=== PATIENT | female | born 1930 | race Caucasian/White ===

== ENCOUNTER 2019-05-20 12:58 | Day surgery (SDC) | payer MEDICARE ==
[~2019-05-20] VITALS: Ht 149.9 cm; Wt 46.4 kg
[~2019-05-20 12:58] MED LIST: ALEN70TA74 PO; ATOR40TA75 PO; CALC-190 PO; CVS1CAP2 PO; ELIQ5TAB PO; LORA-243 PO; METO1TAB7 PO; MULTCAP PO; NS 1,000 ML IV ONE; POTA10TA16 PO; RANI150T PO; SERT-138 PO; TORS20TA2 PO; colon health PO
[2019-05-20] MEDS ORDERED: FECAL MICROBIOTA PREPARATION 250 ML BTL (J3590) XX ONE (13:15)
[2019-05-20] MEDS ORDERED: METOPROLOL SUCC *XL* 25MG TAB (TopROL *XL*) As Ordered ONE (14:35)
[2019-05-20] MEDS ORDERED: METOPROLOL SUCC *XL* 25MG TAB (TopROL *XL*) PO ONE (14:45)
[2019-05-20] MEDS ORDERED: ESMOLOL INJ 100MG/10ML VIAL As Ordered ONE (14:49)
[2019-05-20] MEDS ORDERED: METOPROLOL 5 MG/5 ML VIAL As Ordered ONE (14:49)
[2019-05-20] MEDS ORDERED: LR 300 ML IV SCH (15:00)
[2019-05-20] MEDS: METOPROLOL 5 MG/5 ML VIAL IV PRN ×6 (15:04→15:30)
[2019-05-20] MEDS: ESMOLOL INJ 100MG/10ML VIAL IV PRN ×5 (15:07→15:38)
[2019-05-20 15:30] VITALS: BP 146/92
[2019-05-20] MEDS ORDERED: LR 200 ML IV SCH (15:45)
[2019-05-20] MEDS ORDERED: PROPOFOL 200 MG/20 ML VIAL As Ordered ONE (16:14)
[2019-05-20] MEDS ORDERED: LIDOCAINE 2% INJ 100 MG/5 ML SDV (FOR ANES.) As Ordered ONE (16:14)
--- NOTE | 2019-05-20 16:55 | ROOR ---
Patient Name: Maria Esther Sanchez Procedure Date: 05/20/2019 4:10 PM Date of : 1930 Age: 88 Room: [facility] Gender: Female Note Status: Finalized Procedure: Colonoscopy Indications: Fecal transplant for treatment of recurrent Clostridium difficile diarrhea Providers: Kobe Calderon MD Referring MD: DARRICK LOPEZ MD Requesting Provider: Medicines: Monitored Anesthesia Care Complications: No immediate complications. Procedure: Pre-Anesthesia Assessment: - Prior to the procedure, a History and Physical was performed, and patient medications and allergies were reviewed. The patient is competent. The risks and benefits of the procedure and the sedation options and risks were discussed with the patient. All questions were answered and informed consent was obtained. Patient identification and proposed procedure were verified by the physician, the nurse and the anesthesiologist in the procedure room. Mental Status Examination: alert and oriented. Airway Examination: normal oropharyngeal airway and neck mobility. Respiratory Examination: clear to auscultation. CV Examination: normal. Prophylactic Antibiotics: The patient does not require prophylactic antibiotics. Prior Anticoagulants: The patient has taken no previous anticoagulant or antiplatelet agents. ASA Grade Assessment: III - A patient with severe systemic disease. After reviewing the risks and benefits, the patient was deemed in satisfactory condition to undergo the procedure. The anesthesia plan was to use monitored anesthesia care (MAC). Immediately prior to administration of medications, the patient was re-assessed for adequacy to receive sedatives. The heart rate, respiratory rate, oxygen saturations, blood pressure, adequacy of pulmonary ventilation, and response to care were monitored throughout the procedure. The physical status of the patient was re-assessed after the procedure. The Colonoscope was introduced through the anus and advanced to the cecum, identified by appendiceal orifice and ileocecal valve. The colonoscopy was performed without difficulty. The patient tolerated the procedure well. The quality of the bowel preparation was good. The ileocecal valve, appendiceal orifice, and rectum were photographed. Scope insertion time was 3 minutes. Scope withdrawal time was 6 minutes. The total duration of the procedure was 10 minutes. Findings: The perianal and digital rectal examinations were normal. Multiple small and large-mouthed diverticula were found in the sigmoid colon. There was no evidence of diverticular bleeding. Patchy mild mucosal changes characterized by congestion (edema) and granularity were found in the cecum. There is no endoscopic evidence of mass, stricture or pseudomembranous changes in the entire colon. The decision was made to proceed with fecal microbiota transplant (bacteriotherapy). Donor stool was supplied by a [employer] (purchased frozen stool) and prepared using water as per protocol. Approximately 250 mL of the donor stool was instilled in the cecum. A detailed colonoscopic exam could not be performed upon scope withdrawal secondary to limited visibility from the instilled stool. This precludes the ability to screen for colon cancer, and the patient was made aware of this prior to the procedure. Impression: - Severe diverticulosis in the sigmoid colon. There was no evidence of diverticular bleeding. - Patchy mild mucosal changes were found in the cecum secondary to colitis. - Fecal Microbiota Transplant (Bacteriotherapy) performed in the cecum. - No specimens collected. Recommendation: - Patient has a contact number available for emergencies. The signs and symptoms of potential delayed complications were discussed with the patient. Return to normal activities tomorrow. Written discharge instructions were provided to the patient. - High fiber diet. - Continue present medications. - Repeat colonoscopy is not recommended due to current age (66 years or older) for screening purposes and depending on clinical and functional status. - Telephone GI clinic if symptomatic in 1 week. - Return to primary care physician. Kobe Calderon MD Kobe Calderon MD 05/20/2019 4:54:23 PM Electronically signed by Kobe Calderon MD Number of Addenda: 0 Note Initiated On: 05/20/2019 4:10 PM Estimated Blood Loss: Estimated blood loss: none.
[2019-05-20 17:18] VITALS: BP 118/59
== END 2019-05-20 17:28 | disposition home or self-care (01) ==
LOC: M OPP 12:58
PROVIDERS: ATTEND Internal Medicine Gastroenterology
DX: A04.71 Enterocolitis due to Clostridium difficile, recurrent (principal); K52.9 Noninfective gastroenteritis and colitis, unspecified; K57.30 Diverticulosis of large intestine without perforation or abscess without bleeding; K63.89 Other specified diseases of intestine; R00.8 Other abnormalities of heart beat; I10 Essential (primary) hypertension; E78.5 Hyperlipidemia, unspecified; R60.0 Localized edema; R00.1 Bradycardia, unspecified; K21.9 Gastro-esophageal reflux disease without esophagitis; M19.90 Unspecified osteoarthritis, unspecified site; F41.9 Anxiety disorder, unspecified; Z78.0 Asymptomatic menopausal state; Z79.01 Long term (current) use of anticoagulants; Z79.899 Other long term (current) drug therapy